=== PATIENT | female | born 1945 | race Caucasian/White ===

== ENCOUNTER 2017-05-31 20:24 | Emergency (ER) | payer OTHER ==
[~2017-05-31] VITALS: Ht 167.6 cm; Wt 52.2 kg
--- NOTE | ~2017-05-31 | EKG ---
PATIENT: DREAD AGUILAR UNIT #: [id number] Ventricular Rate: 91 BPM Atrial Rate: 91 BPM P-R Interval: 208 ms QRS Duration: 86 ms Q-T Interval: 376 ms QTC Calculation(Bezet): 462 ms Calculated R Hermann: 10 degrees Calculated T Hermann: 64 degrees Diagnosis Line: Normal sinus rhythm Diagnosis Line: Anterolateral infarct (cited on or before Diagnosis Line: 07-SEP-2016) Diagnosis Line: Abnormal ECG Diagnosis Line: When compared with ECG of 05-DEC-2016 15:09, Diagnosis Line: HI interval has decreased Diagnosis Line: Questionable change in initial forces of Lateral Diagnosis Line: leads Diagnosis Line: Confirmed by YASMINE PERKINS MD ([id number]) on Diagnosis Line: 06/02/2017 8:56:08 AM INTERPRETING MD: MADDIE ALLEN
--- NOTE | ~2017-05-31 | CT71 ---
[facility] A Service of [facility] RADIOLOGY TEXT RESULTS PATIENT: DREAD AGUILAR LOCATION: [facility] : 45 UNIT #: [id number] AGE: [address]: Nav Frost MD SEX: F ORDER DR: [id number] [facility] [address] [place], [place] [address] [id number] E MR#: [id number] Acc #: [id number] NAME: DREAD AGUILAR. : 1945 SEX: F STUDY DATE/TIME: 05/31/2017 22:14 UNIT: [facility] ROOM: STUDY DESCRIPTION: CT Head Wo Contrast Attending Physician: Nav Frost M.D. Ordering Physician: Nav Frost M.D. Primary Care Physician: Robby Hoff Jr., M.D. MEDICAL IMAGING REPORT This report is preliminary unless electronic signature is present EXAM CT head without contrast, 05/31/2017. HISTORY Dizziness, head discomfort for 1 hour. Missed dialysis today. Additional history of brain surgery for tumor in 1990. Cardiac disease. Hypertension. Thyroid disease. Previous stroke/TIA. Kidneys disease. COMPARISON CT head without contrast, 12/24/2016. FINDINGS Signs of old left frontal craniotomy. No acute calvarial abnormalities identified. Minor mucosal thickening in the right ethmoid sinus. Mastoid air cells appear clear. Chronic extensive left frontal lobe encephalomalacic change with ex vacuo dilation of the frontal horn and left lateral ventricle, similar to prior. Fairly extensive hypodensities are seen within the deep white matter of the brain bilaterally, consistent with the appearance of advanced chronic microvascular disease. Brady matter-white matter junction distinction appears preserved; however, there is no compelling CT evidence of acute or evolving infarct at this time. Chronic-appearing lacunar infarct within the left lentiform nucleus. No mass lesion, mass effect, or midline shift is appreciated. Dense bilateral intracranial coronary artery calcifications. IMPRESSION 1. No acute findings or significant change compared to 12/24/2016. 2. Left frontal craniotomy changes with chronic-appearing left frontal lobe encephalomalacia. Extensive chronic microvascular disease changes in the deep white matter with old lacunar type infarct within the left lentiform nucleus. [facility] A Service of [facility] RADIOLOGY TEXT RESULTS PATIENT: DREAD AGUILAR LOCATION: [facility] : 45 UNIT #: [id number] AGE: [address]: Nav Frost MD SEX: F ORDER DR: Dictated by... Candiec Collier M.D. THIS IS AN ELECTRONICALLY VERIFIED REPORT Candice Collier M.D. at 06/01/2017 9:39 PM MIGUEL/lola TD: 06/01/2017 15:20 JOB #: [id number] MEDICAL IMAGING REPORT Page 1 of 1 COPY
[~2017-05-31 20:24] MED LIST: ACETAMINOPHEN; AMLODIPINE BESYL5 MG PO; ANTACID650 MG PO; ASPIRIN81 M2 PO; BUSPAR15 M1 PO; BUSPAR15 M2 PO; CELEXA20 M1 PO; CELEXA20 MG PO; CLIDINIUM-CDP C1 CAP; CLOPIDOGREL75 MG PO; DULCOLAX5 M1; EFFEXOR PO; FAMOTIDINE PO; FERROUS GLUCON324 MG PO; FLAGYL; KCL; LASIX20 MG PO; LEVAQUIN; LEXAPRO; LIBRAX CAPSULE1 CAP; LOTREL 10/20 MG1 CAP; METOPROLOL TAR25 MG PO; NEXIUM; NORVASC10 MG PO; PHENERGAN PO; PHENERGAN12.5 M1 PO; PHOSLO667 MG PO; POTASSIUM CHLO10 ME1 PO; POTASSIUM CHLO10 MEQ DOB; SIMVASTATIN20 MG PO; VICODIN; VICODIN 5/500 T1 TAB; WAL-SOM25 M1; ZANTAC150 M1 PO
[2017-05-31 21:25] LABS: BASOPHIL# 0.1 X10e3 (0-0.3); BASOPHIL% 1.1 % (0-2.5); EOSINOPHIL# 0.4 X10e3 (0-0.7); EOSINOPHIL% 3.8 % (0.0-7.0); HEMATOCRIT 34.4 % (35.0-45.0); HEMOGLOBIN 11.4 gm/dL (12.0-16.0); LYMPHOCYTE# 2.9 X10e3 (1.0-3.5); LYMPHOCYTE% 26.6 % (17.0-45.0); MEAN CELL VOLUME 93.7 FL (83-96); MEAN CORPUSCULAR HEMOGLOBIN 31.1 PG (28-34); MEAN CORPUSCULAR HGB CONC 33.2 g/dL (30-36); MEAN PLATELET VOLUME 8.5 FL (6.5-11.5); MONOCYTE# 0.7 X10e3 (0-1.0); MONOCYTE% 6.8 % (3.0-12.0); NEUTROPHIL# 6.7 X10e3 (1.5-7.1); NEUTROPHIL% 61.7 % (40-75); PLATELET COUNT 228 X10e3 (140-420); RED BLOOD COUNT 3.67 X10e (3.90-5.30); RED CELL DISTRIBUTION WIDTH 15.1 % (11.0-15.5); WHITE BLOOD COUNT 10.9 X10e3 (4.0-10.5)
[2017-05-31 21:26] LABS: DIFF IND NO
[2017-05-31 21:42] LABS: BILIRUBIN, DIRECT 0.1 mg/dL (0.0-0.2); BILIRUBIN,INDIRECT 0.7 mg/dL (0.0-0.9); BILIRUBIN,TOTAL 0.8 mg/dL (0.2-2.0); BUN/CREATININE RATIO 7.41; CALCIUM SERUM 9.4 mg/dL (8.4-10.2); CREATININE SERUM 5.8 mg/dL (0.6-1.4); GLOM FILT RATE Estimated 6.8 mL/min (>60); POTASSIUM 4.9 mmol/L (3.5-5.1); PROTEIN TOTAL SERUM 7.2 g/dL (6.0-8.3)
[2017-05-31 22:09] LABS: URINE SOURCE CLEAN CATCH
[2017-05-31 22:12] LABS: URINE APPEARANCE CLEAR; URINE BILIRUBIN NEG (NEG); URINE BLOOD 1+ (NEG); URINE COLOR YELLOW; URINE GLUCOSE 250 MG/DL (NEG); URINE KETONE NEG (NEG); URINE LEUKOCYTE ESTERASE NEG (NEG); URINE NITRATE NEG (NEG); URINE PH 7.5 (5-8); URINE PROTEIN 2+ (NEG); URINE SPECIFIC GRAVITY 1.009 (1.003-1.035); URINE UROBILINOGEN 0.2 MG/DL (NEG)
[2017-05-31 22:14] LABS: POC - CKMB 2.4 ng/mL (0.0-7.9); POC - TROPONIN <0.05 ng/mL (<=0.05)
[2017-05-31 22:14] LABS: CULTURE INDICATED? YES; URBCS1 AUWI 0-2 /[HPF] (0-2); URINE BACTERIA AUWI 1+ (NEGATIVE); URINE SQUAMOUS EPITHELIAL CELL OCC /[HPF]
== END 2017-05-31 23:35 | disposition home or self-care (01) ==
LOC: CED 20:24
PROVIDERS: Emergency Medicine; Student in an Organized Health Care Education/Training Program
DX: I95.1 Orthostatic hypotension (principal); Z90.49 Acquired absence of other specified parts of digestive tract; F17.210 Nicotine dependence, cigarettes, uncomplicated; N18.9 Chronic kidney disease, unspecified; Z99.2 Dependence on renal dialysis; Z91.030 Bee allergy status; Z88.8 Allergy status to other drugs, medicaments and biological substances
CPT/HCPCS: 36415; 70450; 80048; 80076; 81003; 82553; 84484; 85025; 87086; 93005; 99284